=== PATIENT | female | born 1960 | race Two or more races ===

== ENCOUNTER 2017-03-11 22:24 | Emergency (ER) | payer BC, OTHER ==
[2017-03-11 22:35] VITALS: BP 136/80; PULSE 92; TEMP 98.1; BMI 28.7
--- NOTE | 2017-03-11 23:24 | PDOC ---
History of Present Illness - General History Source: Patient Exam Limitations: No Limitations - History of Present Illness Initial Comments: 03/11/17 23:33 The patient is a 56-year-old female, with a significant past medical history of asthma, diabetes, HTN, and hyperlipidemia, who presents to the ED with diarrhea and vomiting. For the past two days patient has been experiencing multiple episodes of diarrhea which has improved after taking an imodium this morning. Pt has not been able to tolerate any solids or liquids. Daughter states that she had to lewis home today from work because her mother began throwing up. Last meal was soup today. She denies any fever, chills, or abdominal pain. She denies any recent sick contacts or recent travel. <Jes Romero - Last Filed: 03/11/17 23:33> <Tonia Schaffer - Last Filed: 03/12/17 03:48> <Sanjuana Rodriguez - Last Filed: 03/12/17 06:01> - General Chief Complaint: Vomiting/Diarrhea Stated Complaint: VOMITING/DIARRHEA Time Seen by Provider: 03/11/17 23:17 Past History <Jes Romero - Last Filed: 03/11/17 23:33> - Past Medical History Asthma: Yes Diabetes: Yes HTN: Yes Hypercholesterolemia: Yes - Psycho/Social/Smoking Cessation Hx Anxiety: No Suicidal Ideation: No Smoking History: Never smoked Information on smoking cessation initiated: No Hx Alcohol Use: No Drug/Substance Use Hx: No Substance Use Type: None <Tonia Schaffer - Last Filed: 03/12/17 03:48> <Sanjuana Rodriguez - Last Filed: 03/12/17 06:01> - Past Medical History Allergies/Adverse Reactions: Allergies Allergy/AdvReac Type Severity Reaction Status Date / Time No Known Allergies Allergy Verified 03/11/17 22:32 Home Medications: Ambulatory Orders Ibuprofen [Motrin -] 600 mg PO Q6H #20 tablet 02/12/15 Oxycodone HCl/Acetaminophen [Percocet 5/325 -] 1 tab PO Q4H #10 tablet 02/12/15 Review of Systems - Review of Systems Able to Perform ROS?: Yes Comments:: 03/11/17 23:34 GENERAL/CONSTITUTIONAL: No fever or chills. No weakness. HEAD, EYES, EARS, NOSE AND THROAT: No change in vision. No ear pain or discharge. No sore throat. CARDIOVASCULAR: No chest pain or shortness of breath. RESPIRATORY: No cough, wheezing, or hemoptysis. GASTROINTESTINAL: +nausea, vomiting, diarrhea. No constipation. GENITOURINARY: No dysuria, frequency, or change in urination. MUSCULOSKELETAL: No joint or muscle swelling or pain. No neck or back pain. SKIN: No rash NEUROLOGIC: No headache, vertigo, loss of consciousness, or change in strength/ sensation. ENDOCRINE: No increased thirst. No abnormal weight change. HEMATOLOGIC/LYMPHATIC: No anemia, easy bleeding, or history of blood clots. ALLERGIC/IMMUNOLOGIC: No hives or skin allergy. <Jes Romero - Last Filed: 03/11/17 23:33> *Physical Exam - Vital Signs Last Vital Signs Temp Pulse Resp BP Pulse Ox 98.1 F 92 H 18 136/80 98 03/11/17 22:32 03/11/17 22:32 03/11/17 22:32 03/11/17 22:32 03/11/17 22:32 <Jes Romero - Last Filed: 03/11/17 23:33> - Vital Signs Last Vital Signs Temp Pulse Resp BP Pulse Ox 98.1 F 92 H 18 136/80 98 03/11/17 22:32 03/11/17 22:32 03/11/17 22:32 03/11/17 22:32 03/11/17 22:32 - Physical Exam Comments: GENERAL: Awake, alert, and fully oriented, in no acute distress HEAD: No signs of trauma EYES: PERRLA, EOMI, sclera anicteric, conjunctiva clear ENT: Auricles normal inspection, hearing grossly normal, nares patent, oropharynx clear without exudates. Dry mucosa NECK: Normal ROM, supple, no lymphadenopathy, JVD, or masses LUNGS: Breath sounds equal, clear to auscultation bilaterally. No wheezes, and no crackles HEART: Regular rate and rhythm, normal S1 and S2, no murmurs, rubs or gallops ABDOMEN: Soft, +minimal LUQ tenderness, hyperactive bowel sounds. No guarding, no rebound. No masses EXTREMITIES: Normal range of motion, no edema. No clubbing or cyanosis. No cords, erythema, or tenderness NEUROLOGICAL: Cranial nerves II through XII grossly intact. Normal speech, normal gait SKIN: Warm, Dry, normal turgor, no rashes or lesions noted. <Tonia Schaffer - Last Filed: 03/12/17 03:48> - Vital Signs Last Vital Signs Temp Pulse Resp BP Pulse Ox 98.1 F 92 H 18 136/80 98 03/11/17 22:32 03/11/17 22:32 03/11/17 22:32 03/11/17 22:32 03/11/17 22:32 <Sanjuana Rodriguez - Last Filed: 03/12/17 06:01> ED Treatment Course - LABORATORY CBC & Chemistry Diagram: 03/12/17 00:00 03/12/17 00:00 <Tonia Schaffer - Last Filed: 03/12/17 03:48> - LABORATORY CBC & Chemistry Diagram: 03/12/17 00:00 03/12/17 00:00 - ADDITIONAL ORDERS Additional order review: Laboratory Results 03/12/17 03/12/17 02:05 00:00 Sodium 141 Potassium 3.7 Chloride 108 H Carbon Dioxide 21 Anion Gap 12 BUN 27 H Creatinine 0.7 Creat Clearance w eGFR > 60 Random Glucose 214 H Calcium 9.0 Total Bilirubin 1.0 AST 16 ALT 21 Alkaline Phosphatase 83 Total Protein 7.2 Albumin 4.0 Lipase 80 Urine Color Yellow Urine Appearance Cloudy Urine pH 5.0 Urine Protein 1+ H Urine Glucose (UA) 3+ H Urine Ketones 2+ H Urine Blood Negative Urine Nitrite Negative Urine Bilirubin Negative Urine Urobilinogen Negative Ur Leukocyte Esterase Trace Urine RBC 96 Urine WBC 11 Calcium Oxalate Crystal Rare Urine Mucus Many Urine Yeast Few 03/12/17 00:00 RBC 5.50 H MCV 80.0 MCHC 31.6 L RDW 14.7 MPV 9.2 Neutrophils % 75.6 Lymphocytes % 15.7 Monocytes % 5.8 Eosinophils % 2.3 Basophils % 0.6 - Medications Given in the ED: ED Medications Discontinued Medications Generic Name Dose Route Start Last Admin Trade Name Freq PRN Reason Stop Dose Admin Famotidine/Sodium Chloride 50 mls @ 100 mls/hr 03/11/17 23:27 03/11/17 23:36 Pepcid 20 Mg Premixed Ivpb - IVPB 03/11/17 23:56 100 mls/hr ONCE ONE Administration Sodium Chloride 1,000 mls @ 1,000 mls/hr 03/11/17 23:27 03/11/17 23:36 Normal Saline - IV 03/12/17 00:26 1,000 mls/hr ASDIR STA Administration Ondansetron HCl 4 mg 03/11/17 23:27 03/11/17 23:36 Zofran Injection IVPUSH 03/11/17 23:28 4 mg ONCE ONE Administration <Sanjuana Rodriguez - Last Filed: 03/12/17 06:01> Medical Decision Making - Medical Decision Making 03/12/17 02:[address] Rodriguez. Patient reports feeling better s/p GI cocktail and IV fluid. She is providing urine sample presently. F/u UA, DC home. <Tonia Schaffer - Last Filed: 03/12/17 03:48> - Medical Decision Making 03/12/17 05:59 Pt has ketones, glc and yeast in her urine. SHe was hydrated. She will be treated with diflucan. Home with PMD follow up. <Sanjuana Rodriguez - Last Filed: 03/12/17 06:01> *DC/Admit/Observation/Transfer - Attestations Scribe Attestion: 03/11/17 23:35 Documentation prepared by Jes Romero, acting as medical office administrator for Tonia Schaffer MD. <Jes Romero - Last Filed: 03/11/17 23:33> <Tonia Schaffer - Last Filed: 03/12/17 03:48> - Discharge Dispostion Admit: No <Sanjuana Rodriguez - Last Filed: 03/12/17 06:01> Diagnosis at time of Disposition: Yeast infection, Vomiting and diarrhea - Discharge Dispostion Disposition: HOME Condition at time of disposition: Stable - Patient Instructions Printed Discharge Instructions: DI for Vomiting -- Adult, Diarrhea, DI for Vaginal Yeast Infection
[2017-03-11] MEDS ORDERED: ONDANSETRON 4 MG/2 ML VIAL IVPUSH ONE (23:27)
[2017-03-11] MEDS ORDERED: FAMOTIDINE 20 MG/50 ML IVPB 50 ML IVPB ONE ×2 (23:27→23:39)
[2017-03-11] MEDS ORDERED: SODIUM CHLORIDE 1,000 ML IV STA (23:27)
[2017-03-11] MEDS ORDERED: ONDANSETRON 4 MG/2 ML VIAL ONE (23:38)
[2017-03-12 00:24] LABS: BASOPHIL 0.6 % (0-2.0); EOSINOPHIL 2.3 % (0-4.5); MCH 25.3 pg (25.7-33.7); MCHC 31.6 g/dl (32.0-36.0); MEAN PLT VOLUME 9.2 fl (7.5-11.1); NEUTROPHILS 75.6 % (42.8-82.8); PLATELET COUNT 252 K/MM3 (134-434); RDW 14.7 % (11.6-15.6); WHITE BLOOD COUNT 8.2 K/mm3 (4.0-10.0)
[2017-03-12 00:52] LABS: ANION GAP 12 (8-16); CO2 21 mmol/L (21-32); CREATININE 0.7 mg/dL (0.55-1.02); GLUCOSE,RANDOM 214 mg/dL (74-106); SGOT/AST 16 U/L (15-37); SGPT/ALT 21 U/L (12-78)
[2017-03-12 00:53] LABS: ALK PHOS 83 U/L (45-117); TOT PROT 7.2 g/dl (6.4-8.2)
[2017-03-12 02:22] LABS: URINE APPEARANCE CLOUDY; URINE BILIRUBIN NEGATIVE (NEGATIVE); URINE BLOOD NEGATIVE (NEGATIVE); URINE COLOR YELLOW; URINE GLUCOSE (UA) 3+ (NEGATIVE); URINE KETONE 2+ (NEGATIVE); URINE LEUK ESTERASE TRACE (NEGATIVE); URINE NITRITE NEGATIVE (NEGATIVE); URINE PROTEIN 1+ (NEGATIVE); URINE UROBILINOGEN NEGATIVE mg/dL (0.2-1.0)
[2017-03-12 02:25] LABS: CALCIUM OXALATE CRYSTALS RARE /hpf (NONE SEEN); URINE MUCUS MANY; URINE RBC 96 /hpf (0-3); URINE WBC 11 /hpf (3-5); YEAST FEW
[2017-03-12] MEDS ORDERED: FLUCONAZOLE 50 MG TABLET PO ONE (02:50)
[2017-03-12] MEDS ORDERED: FLUCONAZOLE 100 MG TABLET (UD) ONE (02:58)
== END 2017-03-12 03:21 | disposition home or self-care (01) ==
LOC: JER 22:24
PROC: 3E033GC Introduction of Other Therapeutic Substance into Peripheral Vein, Percutaneous Approach (ICD-10-PCS; principal; 2017-03-11)
PROC: 3E033GC Introduction of Other Therapeutic Substance into Peripheral Vein, Percutaneous Approach (ICD-10-PCS; 2017-03-11)
DX: B37.49 Other urogenital candidiasis (principal); R11.2 Nausea with vomiting, unspecified; R19.7 Diarrhea, unspecified
CPT/HCPCS: 36415; 80053; 81003; 81015; 83690; 85025; 87086; 99281-25

== ENCOUNTER 2018-01-06 07:52 | Emergency (ER) | payer BC, OTHER ==
[2018-01-06 08:03] VITALS: BMI 29.2
--- NOTE | 2018-01-06 08:30 | PDOC ---
History of Present Illness <Wilfrid Cooper - Last Filed: 01/06/18 14:01> <Juan Diego Marinelli - Last Filed: 01/06/18 15:22> - General Chief Complaint: Shortness of Breath Stated Complaint: SOB Time Seen by Provider: 01/06/18 08:00 - History of Present Illness Initial Comments: 01/06/18 09:06 The patient is a 57 year old female, with a significant past medical history of asthma, diabetes, HTN, and hyperlipidemia, who presents to the emergency department with chest pain and shortness of breath earlier this morning. The patient reports she was in the kitchen making a meal, when suddenly she developed a chest pressure, nonradiating in nature. She reports associated shortness of breath and lightheadedness, but denies any diaphoresis, palpitations, or lower extremity edema. Patient reports taking her inhaler for her SOB with minimal relief. She states her symptoms lasted approximately 10 minutes and resolved spontaneously. She currently denies any complaints. She reports recent stressors and states she has had anxiety attacks in the past, some similar to this episode. She denies any fever, chills, cough, headache, or dizziness. She denies any abdominal pain, nausea, or vomiting. She denies any recent travel or sick contacts. Denies leg swelling. Allergies: NKDA Past Surgical History: None reported Social History: Non smoker. No ETOH or recreational drug use. (Wilfrid Cooper) Past History - Past Medical History Asthma: Yes COPD: No Diabetes: Yes HTN: Yes Hypercholesterolemia: Yes - Suicide/Smoking/Psychosocial Hx Smoking History: Never smoked Have you smoked in the past 12 months: No Information on smoking cessation initiated: No Hx Alcohol Use: No Drug/Substance Use Hx: No Substance Use Type: None <Wilfrid Cooper - Last Filed: 01/06/18 14:01> <Juan Diego Marinelli - Last Filed: 01/06/18 15:22> - Past Medical History Allergies/Adverse Reactions: Allergies Allergy/AdvReac Type Severity Reaction Status Date / Time No Known Allergies Allergy Verified 01/06/18 07:58 Home Medications: Ambulatory Orders Ibuprofen [Motrin -] 600 mg PO Q6H #20 tablet 02/12/15 Oxycodone HCl/Acetaminophen [Percocet 5/325 -] 1 tab PO Q4H #10 tablet 02/12/15 Review of Systems <Wilfrid Cooper - Last Filed: 01/06/18 14:01> <MarinelliJuan Diego - Last Filed: 01/06/18 15:22> - Review of Systems Comments:: 01/06/18 09:10 "GENERAL/CONSTITUTIONAL: No fever or chills. No weakness. HEAD, EYES, EARS, NOSE AND THROAT: No change in vision. No ear pain or discharge. No sore throat. CARDIOVASCULAR: +Chest pain, shortness of breath. RESPIRATORY: No cough, wheezing, or hemoptysis. GASTROINTESTINAL: No nausea, vomiting, diarrhea or constipation. GENITOURINARY: No dysuria, frequency, or change in urination. MUSCULOSKELETAL: No joint or muscle swelling or pain. No neck or back pain. SKIN: No rash NEUROLOGIC: +Lightheadedness. No headache, vertigo, loss of consciousness, or change in strength/sensation. ENDOCRINE: No increased thirst. No abnormal weight change. HEMATOLOGIC/LYMPHATIC: No anemia, easy bleeding, or history of blood clots. ALLERGIC/IMMUNOLOGIC: No hives or skin allergy. " (Wilfrid Cooper) *Physical Exam <Wilfrid Cooper - Last Filed: 01/06/18 14:01> <MarinelliHollieric - Last Filed: 01/06/18 15:22> - Vital Signs Last Vital Signs Temp Pulse Resp BP Pulse Ox 98.2 F 81 17 116/73 96 01/06/18 14:45 01/06/18 14:45 01/06/18 14:45 01/06/18 14:45 01/06/18 14:45 - Physical Exam Comments: 01/06/18 08:30 "GENERAL: Awake, alert, and fully oriented, in no acute distress. HEAD: No signs of trauma EYES: PERRLA, EOMI, sclera anicteric, conjunctiva clear ENT: Auricles normal inspection, hearing grossly normal, nares patent, oropharynx clear without exudates. Moist mucosa NECK: Nontender, no stepoffs, Normal ROM, supple, no lymphadenopathy, JVD, or masses LUNGS: Breath sounds equal, clear to auscultation bilaterally. No wheezes, and no crackles HEART: Regular rate and rhythm, normal S1 and S2, no murmurs, rubs or gallops ABDOMEN: Soft, nontender, normoactive bowel sounds. No guarding, no rebound. No masses EXTREMITIES: Normal range of motion, no edema. No clubbing or cyanosis. No cords, erythema, or tenderness NEUROLOGICAL: Cranial nerves II through XII intact. 5/5 strength and sensation in all extremities, Normal speech, normal gait, normal cerebellar function SKIN: Warm, Dry, normal turgor, no rashes or lesions noted. " (Wilfrid Cooper) Heart Score/ECG Review - History History: Slightly suspicious - Electrocardiogram EKG: Normal - Age Age: 45-65 - Risk Factors Risk Factors Heart Score: Yes Hx Hypertension, Yes Hx Diabetes, Yes Hx Obesity Based on the list above the patient has:: >/=3 risk factors or Hx atherosclerotic disease - Troponin Troponin: </= normal limit - Score Heart Score - Total: 3 <AllisonWilfrid - Last Filed: 01/06/18 14:01> <Juan Diego Marinelli - Last Filed: 01/06/18 15:22> - ECG Impressions Comment:: 01/06/18 08:28 NSR, no LIBBY/STDs, no TWIs, axis wnl, intervals wnl, rate 82 (Ou,Wilfrid) ED Treatment Course - LABORATORY CBC & Chemistry Diagram: 01/06/18 08:30 01/06/18 08:30 <Wilfrid Cooper - Last Filed: 01/06/18 14:01> - LABORATORY CBC & Chemistry Diagram: 01/06/18 08:30 01/06/18 08:30 <Juan Diego Marinelli - Last Filed: 01/06/18 15:22> - ADDITIONAL ORDERS Additional order review: Laboratory Results 01/06/18 01/06/18 01/06/18 13:15 08:30 08:30 Sodium Cancelled 142 Potassium Cancelled 4.0 Chloride Cancelled 108 H Carbon Dioxide Cancelled 25 Anion Gap Cancelled 9 BUN Cancelled 16 Creatinine Cancelled 0.8 Creat Clearance w eGFR Cancelled > 60 Random Glucose Cancelled 225 H Calcium Cancelled 8.8 Total Bilirubin Cancelled 0.5 D AST Cancelled 15 ALT Cancelled 21 Alkaline Phosphatase Cancelled 77 Creatine Kinase 88 86 Troponin I < 0.02 < 0.02 B-Natriuretic Peptide 9.98 Total Protein Cancelled 6.7 Albumin Cancelled 3.4 01/06/18 08:30 RBC 5.34 H MCV 80.4 MCHC 31.8 L RDW 14.2 MPV 9.3 Neutrophils % 65.2 Lymphocytes % 25.8 D Monocytes % 6.9 Eosinophils % 1.4 Basophils % 0.7 - RADIOLOGY Radiograph Interpretation: 01/06/18 15:20 EXAM: CXR INTERPRETED BY: Dr. Zheng REVIEWED BY: Dr. Cooper No evidence of widening of the superior mediastinum. The cardiac silhouette is not enlarged. Normal contour of the thoracic aorta. The cardiomediastinal silhouette unchanged in comparison to CT of the chest made 2016. No evidence of pneumonia, atelectasis. The pulmonary vasculature is normal. No pleural effusion, or pneumothorax is seen. No evidence of bulky hilar adenopathy. Degenerative changes involving the thoracic spine. No evidence of active pulmonary disease. (Juan Diego Marinelli) Medical Decision Making <Wilfrid Cooper - Last Filed: 01/06/18 14:01> <Juan Diego Marinelli - Last Filed: 01/06/18 15:22> - Medical Decision Making 01/06/18 08:28 57 F with transient episode of SOB and chest pain. Atypical in nature, possibly anxiety or stress-related. ACS unlikely as EKG is normal. Pt with no PE risk factors, normal vitals, no clinical signs of DVT. - Labs, trop - CXR 01/06/18 14:01 labs wnl trop negative x 2 CXR clear Pt reassessed - continues to feel well. Pt is well appearing, with normal vitals. Clinically stable for DC at this time. I discussed the physical exam findings, ancillary test results and final diagnoses with the patient. I answered all of the patient's questions. The patient was satisfied with the care received and felt comfortable with the discharge plan and treatment plan. The patient agrees to follow up with the primary care physician within 24-72 hours. (Wilfrid Cooper) *DC/Admit/Observation/Transfer <Wilfrid Cooper - Last Filed: 01/06/18 14:01> <Juan Diego Marinelli - Last Filed: 01/06/18 15:22> Diagnosis at time of Disposition: Chest pain - Discharge Dispostion Disposition: HOME - Referrals Referrals: Marquis Cheung [Primary Care Provider] - - Patient Instructions Printed Discharge Instructions: DI for Atypical Chest Pain Additional Instructions: Follow up with your primary doctor within 1 week for further evaluation of your chest pain. Even though your labs were normal today, we cannot rule out all heart disease. You will need a stress test. If you experience recurrent chest pain, shortness of breath, or any other concerning symptoms, return to the ER immediately. - Post Discharge Activity - Attestations Scribe Attestion: 01/06/18 15:22 Documentation prepared by Juan Diego Marinelli, acting as medical billing instructor for Wilfrid Cooper MD. (Juan Diego Marinelli) Physician Attestion: 01/06/18 13:37 I, Dr. Wilfrid Cooper MD, attest that this document has been prepared under my direction and personally reviewed by me in its entirety. I further attest, that it accurately reflects all work, treatment, procedures and medical decision -making performed by me. (Wilfrid Cooper)
[2018-01-06 08:51] LABS: BASO % 0.7 % (0-2.0); EOS % 1.4 % (0-4.5); HEMOGLOBIN 13.7 GM/dL (10.7-15.3); LYMPH % 25.8 % (8-40); MCH 25.6 pg (25.7-33.7); MCHC 31.8 g/dl (32.0-36.0); MEAN CELL VOLUME 80.4 fl (80-96); MEAN PLT VOLUME 9.3 fl (7.5-11.1); MONO % 6.9 % (3.8-10.2); NEUT % 65.2 % (42.8-82.8); PLATELET COUNT 260 K/MM3 (134-434); RBC 5.34 M/mm3 (3.60-5.2); RDW 14.2 % (11.6-15.6)
[2018-01-06 09:08] LABS: ALBUMIN 3.4 g/dl (3.4-5.0); ANION GAP 9 (8-16); BILIRUBIN,TOTAL 0.5 mg/dL (0.2-1.0); BLOOD UREA NITROGEN 16 mg/dL (7-18); CALCIUM 8.8 mg/dL (8.5-10.1); CHLORIDE 108 mmol/L (98-107); CO2 25 mmol/L (21-32); CREATININE 0.8 mg/dL (0.55-1.02); GLUCOSE,RANDOM 225 mg/dL (74-106); SGOT/AST 15 U/L (15-37); SGPT/ALT 21 U/L (12-78); SODIUM 142 mmol/L (136-145); TOT PROT 6.7 g/dl (6.4-8.2)
[2018-01-06 09:11] LABS: ALK PHOS 77 U/L (45-117); N-TERMINAL BNP 9.98 pg/ml (5-125)
--- NOTE | 2018-01-06 10:41 | EKG ---
Test Reason : Blood Pressure : / mmHG Vent. Rate : 082 BPM Atrial Rate : 082 BPM P-R Int : 158 ms QRS Dur : 082 ms QT Int : 392 ms P-R-T Axes : 056 025 019 degrees QTc Int : 457 ms NORMAL SINUS RHYTHM NO PREVIOUS ECGS AVAILABLE Confirmed by GELA EVANS MD ([id number]) on 01/06/2018 10:41:15 AM Referred By: Confirmed By:GELA EVANS MD
[2018-01-06 14:47] VITALS: BP 116/73; PULSE 81; TEMP 98.2
== END 2018-01-06 14:46 | disposition home or self-care (01) ==
LOC: JER 07:52
DX: R07.9 Chest pain, unspecified (principal); I10 Essential (primary) hypertension; J45.909 Unspecified asthma, uncomplicated; E11.9 Type 2 diabetes mellitus without complications; E78.00 Pure hypercholesterolemia, unspecified
CPT/HCPCS: 36415; 71046-TC-FY; 80053; 82550; 83880; 84484; 85025; 93005; 93010; 99283-25

== ENCOUNTER 2018-12-30 10:15 | Emergency (ER) | payer BC, OTHER ==
[2018-12-30 10:20] VITALS: TEMP 97.6; BMI 48.5
[2018-12-30] MEDS ORDERED: SODIUM CHLORIDE 1,000 ML IV STA (11:12)
--- NOTE | 2018-12-30 12:17 | PDOC ---
History of Present Illness - General Chief Complaint: Ear Problem Stated Complaint: LT EAR PAIN Time Seen by Provider: 12/30/18 10:35 History Source: Patient Exam Limitations: No Limitations - History of Present Illness Initial Comments: 12/30/18 12:00 58 yo female pmh of HTN and IDDM presents to the ED for somnolence and generalized weakness. Pt states the symptoms began 2 days ago, progressively getting worse. Of note, pt diagnosed with left ear infection 12/27, treated with antibiotics, states ear pain relieved. 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 Past History - Past Medical History Allergies/Adverse Reactions: Allergies Allergy/AdvReac Type Severity Reaction Status Date / Time No Known Allergies Allergy Verified 01/22/18 22:10 Home Medications: Ambulatory Orders Empagliflozin [Jardiance] 10 mg PO DAILY 12/30/18 Sitagliptin Phos/Metformin HCl [Janumet 50-500 mg Tablet] 1 each PO DAILY Asthma: Yes COPD: No Diabetes: Yes HTN: Yes Hypercholesterolemia: Yes - Immunization History Immunization Up to Date: No - Suicide/Smoking/Psychosocial Hx Smoking History: Never smoked Have you smoked in the past 12 months: No Information on smoking cessation initiated: No Hx Alcohol Use: No Drug/Substance Use Hx: No Substance Use Type: None Review of Systems - Review of Systems Constitutional: Yes: Weakness (generalized). No: Chills, Fever HEENTM: No: Throat Pain, Throat Swelling, Difficulty Swallowing Respiratory: No: Cough, Shortness of Breath Cardiac (ROS): No: Chest Pain, Edema, Palpitations, Syncope ABD/GI: No: Constipated, Diarrhea, Nausea, Vomiting : No: Burning, Dysuria, Discharge, Frequency, Flank Pain Musculoskeletal: No: Back Pain Integumentary: No: Change in Color, Rash Neurological: No: Headache, Numbness, Paresthesia, Unsteady Gait *Physical Exam - Vital Signs Last Vital Signs Temp Pulse Resp BP Pulse Ox 97.6 F 72 16 161/89 97 12/30/18 10:17 12/30/18 10:17 12/30/18 10:17 12/30/18 10:17 12/30/18 10:17 - Physical Exam General Appearance: Yes: Nourished, Appropriately Dressed. No: Apparent Distress (pt appears somnolent however AOX3, NAD) HEENT: positive: EOMI, SHASHI, Hearing Grossly Normal, TM Erythema (left. Pt has known recent left ear infection with improvement on antibiotics for 3 days). negative: Photophobia, Scleral Icterus (R), Scleral Icterus (L) Neck: positive: Supple, Other (Full ROM intact without pain or stiffness). negative: Tender, Rigid, Lymphadenopathy (R), Lymphadenopathy (L), Tender lateral, Tender midline Respiratory/Chest: positive: Lungs Clear, Normal Breath Sounds. negative: Accessory Muscle Use, Crackles, Rales, Rhonchi, Stridor, Wheezing Cardiovascular: positive: Regular Rhythm, Regular Rate, S1, S2. negative: Edema , JVD, Murmur Vascular Pulses: Dorsalis-Pedis (R): 4+, Doralis-Pedis (L): 4+ Gastrointestinal/Abdominal: positive: Flat, Soft. negative: Pulsatile Mass, Protuberent, Distended, Guarding, Rebound, Tenderness Lymphatic: negative: Adenopathy Musculoskeletal: negative: CVA Tenderness Extremity: positive: Normal Capillary Refill, Normal Inspection, Normal Range of Motion Integumentary: positive: Normal Color, Dry, Warm. negative: Jaundice, Pale, Cold Neurologic: positive: ladies' hat trimmer II-XII NML intact, Fully Oriented, Alert (however somnolent), Normal Mood/Affect, Normal Response, Motor Strength 5/5. negative: Facial Droop, Numbness, Sensory Deficit, Confused, Disoriented ED Treatment Course - LABORATORY CBC & Chemistry Diagram: 12/30/18 12:01 12/30/18 12:01 Medical Decision Making - Medical Decision Making 12/30/18 15:29 58 yo female pmh of HTN and IDDM presents to the ED for lethargy and generalized weakness. Pt states the symptoms began 2 days ago, progressively getting worse. Of note, pt diagnosed with left ear infection 12/27, treated with antibiotics, states ear pain relieved. Denies recent travel, sick contacts , F/C/N/V, neck pain/stiffness, body aches, cough, sore throat, congestion, changes in bowel or bladder habits. 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 Vitals WNL EKG NSR without ST changes DDX INLT: meningitis (vitals wnl, no confusion, neck pain/stiffness on full neck flexion, no photophobia)I extending ear infection/mastoiditis (no mastoid tenderness) anemia, electrolyte abn Labs WNL, normal WBC, no anemia or electrolyte abn UA WNL Head CT and soft tissue neck with contrast ordered to r/o acute intracranial process, mastoiditis or other signs of extending infection/mass CT neg Pt awake, alert, normal mood/affect, no confusion or behaviour changes Ambulates without difficulty after fluids, states she feels much better after a few hours of rest pt safe for DC home with strict return precautions for possible beginning stages of infection Pt agrees to f/u with PCP *DC/Admit/Observation/Transfer Diagnosis at time of Disposition: Somnolence - Discharge Dispostion Disposition: HOME Condition at time of disposition: Stable Decision to Admit order: No - Referrals - Patient Instructions Additional Instructions: Please see your primary doctor within the next 48 hours. Make sure to eat and drink regularly and get rest. Return to the ER for new or concerning symptoms including but not limited to: high fevers, headaches, confusion, neck pain, chest pain. Thank you - Post Discharge Activity
[2018-12-30 12:22] LABS: BASO % 0.6 % (0-2.0); EOS % 1.1 % (0-4.5); HEMATOCRIT 41.4 % (32.4-45.2); HEMOGLOBIN 13.1 GM/dL (10.7-15.3); LYMPH % 43.6 % (8-40); MCH 25.6 pg (25.7-33.7); MCHC 31.7 g/dl (32.0-36.0); MEAN CELL VOLUME 80.7 fl (80-96); MEAN PLT VOLUME 9.3 fl (7.5-11.1); MONO % 7.9 % (3.8-10.2); NEUT % 46.8 % (42.8-82.8); PLATELET COUNT 199 K/MM3 (134-434); RBC 5.13 M/mm3 (3.60-5.2); RDW 13.9 % (11.6-15.6); WHITE BLOOD COUNT 3.7 K/mm3 (4.0-10.0)
[2018-12-30 12:38] LABS: ALBUMIN 3.5 g/dl (3.4-5.0); BILIRUBIN,TOTAL 0.5 mg/dL (0.2-1); CALCIUM 9.3 mg/dL (8.5-10.1); CREATININE 0.6 mg/dL (0.55-1.3); POTASSIUM 4.2 mmol/L (3.5-5.1); TOT PROT 6.6 g/dl (6.4-8.2)
[2018-12-30 12:42] LABS: INR 1.07 (0.83-1.09); PROTHROMBIN TIME (PATIENT) 12.6 SEC (9.7-13.0)
--- NOTE | 2018-12-30 14:58 | PDOC ---
Documentation entered by Oly Nieto SCRIBE, acting as scribe for Pete Banerjee MD. Pete Banerjee MD: This documentation has been prepared by the afuaibe, Oly Nieto SCRIBE, under my direction and personally reviewed by me in its entirety. I confirm that the documentation accurately reflects all work, treatment, procedures, and medical decision making performed by me. Attending Attestation - Resident Resident Name: Aubrey Brush - ED Attending Attestation I have performed the following: I have examined & evaluated the patient, The case was reviewed & discussed with the resident, I agree w/resident's findings & plan, Exceptions are as noted - HPI HPI: 12/30/18 13:57 The patient is a 58 year old female with a significant past medical history of hypertension, hyperlipidemia, asthma, and diabetes who presents to the emergency department with general weakness and malaise for 2 days. The patient reports that she has been feeling very tired and weak and has been worsening since yesterday. The patient states that she has been taking care of her sister with Alzheimer and she was doing that yesterday. The patient states that she was recently seen in the ED for an ear infection 3 days ago by which she was prescribed antibiotics. She states that she pain has since resolved. The patient states that she went to bed at around 11 om and woke up at 7:30 am this morning. She reports an associated mild, gradual onset headache on the right side quentin twas aching when she woke up this morning that has since subsided after 15 minutes spontaneously. She denies any vision changes, dysarthria, focal numbness/tinglign/weakness, neck pain, back pain fever, chills, nausea, vomiting ,diarrhea, constipation, or urinary symptoms. She denies any recent travel - Physicial Exam PE: 12/30/18 12:53 GENERAL: The patient is awake, alert, and fully oriented, Nontoxic - in no acute distress, somnolent but easily arousable HEAD: Normocephalic, atraumatic. EYES: extraocular movements intact, sclera anicteric, conjunctiva clear. ENT: Normal voice, Moist mucous membranes, no mastoid ttp, no ttp to sinuses NECK: Normal range of motion, supple without meningismus LUNGS: Breath sounds equal, clear to auscultation bilaterally. No wheezes, no rhonchi, no rales. HEART: Regular rate and rhythm, normal S1 and S2 without murmur, rub or gallop. ABDOMEN: Soft, nontender, normoactive bowel sounds. No guarding, no rebound. . No CVA tenderness EXTREMITIES: Normal range of motion, no edema. No clubbing or cyanosis. No cords, erythema, or tenderness. NEUROLOGICAL: No facial assymetry, Normal speech, movin gall 4 extremities spontaneously and symmetrically PSYCH: Normal mood, normal affect. SKIN: Warm, Dry, normal turgor, - Medical Decision Making 12/30/18 12:27 58y F hx of IDDM, HTN< presents with complaint of generalized weakness/malaise - pt was ok until thi smorning when she feels very sleepy, like she cant keep her eyes open. she endorses a mild frontal headache this morning but that hs since rsolved after approx 15 minutes spontaneously. no associated vision changes, n/v, numbness/tingling/weakness, neck pain, back pain, cp, sob, renee, trauama, dysuria, diarrhea, melena, current headache. no head trauma. she denies any current pain or discomfort. Differential for the patient's symptoms includes possible anemia, metabolic derangement, sleep debt will ck basic labs will reasess Heart Score/ECG Review - ECG Impressions Comment:: 12/30/18 12:59 Twelve-lead EKG was performed and reviewed by me. There is normal sinus rhythm with a normal rate. rate of 65 The axis is normal. The intervals are normal. There is normal R wave progression There are no ST or T wave abnormalities. Impression: Normal twelve-lead EKG
[2018-12-30 18:16] VITALS: BP 172/68; PULSE 69
--- NOTE | 2018-12-31 12:32 | EKG ---
Test Reason : Blood Pressure : / mmHG Vent. Rate : 065 BPM Atrial Rate : 065 BPM P-R Int : 144 ms QRS Dur : 084 ms QT Int : 388 ms P-R-T Axes : 064 025 032 degrees QTc Int : 403 ms NORMAL SINUS RHYTHM NORMAL ECG WHEN COMPARED WITH ECG OF 23-JAN-2018 00:36, NO SIGNIFICANT CHANGE WAS FOUND Confirmed by GELA EVANS MD ([id number]) on 12/31/2018 12:31:52 PM Referred By: Confirmed By:GELA EVANS MD
== END 2018-12-30 18:16 | disposition home or self-care (01) ==
LOC: JER 10:15 → JERFT 10:15 → JER 18:16
PROC: 3E0337Z Introduction of Electrolytic and Water Balance Substance into Peripheral Vein, Percutaneous Approach (ICD-10-PCS; principal; 2018-12-30)
DX: R40.0 Somnolence (principal); I10 Essential (primary) hypertension; E11.9 Type 2 diabetes mellitus without complications; Z79.84 Long term (current) use of oral hypoglycemic drugs; E78.00 Pure hypercholesterolemia, unspecified; J45.909 Unspecified asthma, uncomplicated
CPT/HCPCS: 36415; 70450-TC; 70491-TC; 80053; 85025; 85610; 93005; 93010; 99283-25; J7030